=== PATIENT | female | born 1945 | race Caucasian/White ===

== ENCOUNTER → 2024-11-18 | Outpatient (CLI) | payer MEDICARE, OTHER ==
[~2024-11-18] MED LIST: iohexol 350MG/ML 100ml bottle IV ONE
== END | disposition home or self-care (01) ==
LOC: RAD 09:27
PROVIDERS: ATTEND Internal Medicine Interventional Cardiology
DX: I65.23 Occlusion and stenosis of bilateral carotid arteries (principal)
CPT/HCPCS: 70498; Q9967

== ENCOUNTER 2024-12-30 13:44 | Day surgery (SDC) | payer MEDICARE, OTHER ==
[2024-12-27 09:10] LABS: BASOPHILS % (AUTO) 0.6 % (0-1); EOSINOPHILS # (AUTO) 0.3 X10'3 (0-0.9); EOSINOPHILS % (AUTO) 4.2 % (0-6); HEMATOCRIT 37.7 % (35.0-45.0); HEMOGLOBIN 12.9 g/dl (12.0-16.0); LYMPHOCYTES # (AUTO) 2.5 X10'3 (1.1-4.8); LYMPHOCYTES % (AUTO) 33.4 % (21-51); MEAN CORPUSCULAR HEMOGLOBIN 30.3 PG (27.0-31.0); MEAN CORPUSCULAR HGB CONC 34.2 g/dL (33.0-36.5); MEAN CORPUSCULAR VOLUME 88.6 FL (78-98); MEAN PLATELET VOLUME 9.4 FL (7.4-10.4); MONOCYTES # (AUTO) 0.5 X10'3 (0-0.9); MONOCYTES % (AUTO) 6.8 % (2-12); NEUTROPHILS # (AUTO) 4.1 X10'3 (1.8-7.7); PLATELET COUNT 246 X10'3 (140-440); RED BLOOD COUNT 4.26 X10'6 (4.20-5.60); RED CELL DISTRIBUTION WIDTH 14.6 % (11.5-14.5); WHITE BLOOD COUNT 7.4 X10'3 (4.5-11.0)
[2024-12-27 09:19] LABS: APTT 29 SECONDS (22-32); PROTHROMBIN TIME 10.4 SECONDS (9.0-12.0)
[2024-12-27 09:27] LABS: ALBUMIN 3.6 G/DL (3.4-5.0); ANION GAP 8 (8-16); BLOOD UREA NITROGEN 22 MG/DL (7-18); BUN/CREATININE RATIO 18.8 (10.0-20.0); CALCIUM 9.6 MG/DL (8.5-10.1); CHLORIDE 106 MMOL/L (99-107); CHOL/HDL RATIO 1.9 (0.00-4.99); CHOLESTEROL 150 MG/DL (0-200); CREATININE 1.17 MG/DL (0.40-0.90); GLUCOSE 104 MG/DL (70-104); HDL CHOLESTEROL 81 MG/DL (35-60); LDL CHOLESTEROL 52 MG/DL (50-100); POTASSIUM 3.4 MMOL/L (3.5-5.1); SODIUM 142 MMOL/L (135-145); TOTAL CARBON DIOXIDE 28.1 MMOL/L (24-32); TRIGLYCERIDES 113 MG/DL (20-135); eGFR 45 ML/MIN
[2024-12-30] VITALS (10 sets, daily range): BP systolic 103–169; BP diastolic 48–71; PULSE 61–95; RESP 10–19; TEMP 98.1; O2SAT 93–98
[~2024-12-30] VITALS: Ht 160 cm; Wt 72.8 kg
--- NOTE | 2024-12-30 14:13 | ELECTROCARDIOGRAPH REPORT ---
[facility] Test Date: 2024-12-30 Test Time: 14:10:52 Pat Name: NED FINK Department: [facility] Patient ID: [facility]-[id number] Room: Gender: F Benefits Manager: : 1945 Requested By: CONNIE DAWSON Order Number: [id number] Reading MD: Dr. ISMAEL Hicks Measurements Intervals [place] Rate: 75 P: 11 NV: 189 QRS: -19 QRSD: 100 T: 109 QT: 414 QTc: 463 Interpretive Statements Sinus rhythm Atrial premature complexes in couplets LVH with secondary repolarization abnormality Baseline wander in lead(s) II,aVR,aVF Electronically Signed On 12-30-2024 19:14:[address] ISMAEL Hicks Please click the below link to view image of tracing.
[2024-12-30] MEDS ORDERED: RALO60TA13 PO (14:46)
[2024-12-30] MEDS ORDERED: BENA40TA46 PO (14:46)
[2024-12-30] MEDS ORDERED: CLOP-32 PO (14:46)
[2024-12-30] MEDS ORDERED: EZET10TA7 PO (14:46)
[2024-12-30] MEDS ORDERED: HYDR25TA5 PO (14:46)
[2024-12-30] MEDS ORDERED: ASPI-611 PO (14:46)
[2024-12-30] MEDS ORDERED: ATOR-2 PO (14:46)
[2024-12-30] MEDS ORDERED: CALC-159 PO (14:46)
[2024-12-30] MEDS ORDERED: GLUC1CAP33 PO (14:46)
[2024-12-30] MEDS: normal saline 1,000 ML IV SCH (15:14)
[2024-12-30] MEDS: diphenhydrAMINE 25mg capsule PO PRN (15:15)
[2024-12-30] MEDS ORDERED: DOPamine 400mg/D5W 250ml 0 ML IV ONE (16:06)
[2024-12-30] MEDS ORDERED: phenylephrine 10mg/ml inj. ONE (16:06)
[2024-12-30] MEDS ORDERED: epiNEPHrine 0.1mg/ml 10ml syringe ONE (16:07)
[2024-12-30] MEDS ORDERED: atropine 0.1mg/ml 10ml syringe ONE (16:07)
[2024-12-30] MEDS ORDERED: LIDOcaine 1% 30ml preserv. free vial ONE (16:07)
[2024-12-30] MEDS ORDERED: heparin 1,000unit/ml 10ml vial 0 ML ONE (16:07)
[2024-12-30] MEDS ORDERED: iohexol 350MG/ML 100ml bottle IV ONE (16:08)
[2024-12-30] MEDS ORDERED: iohexol 350 MG/ML 50ML vial IV ONE (16:46)
--- NOTE | 2024-12-30 18:05 | OPERATIVE REPORT ---
Operative Report Providers to CC: TRACEE HARDY MD Operative Report CAROTID ANGIOGRAM DICTATING PHYSICIAN: Jeyson Dawson MD PROCEDURES: 1. Aortic arch angiography. 2. Selective right common and non-selective right internal and external carotid artery angiography. 3. Right femoral angiography and use of a PerClose closure device achieve hemostasis. INDICATIONS 1. Severe/Critical carotid artery stenosis per carotid doppler PHYSICIAN: Jeyson Dawson M.D. 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 After adequate anesthesia was obtained using 1% lidocaine to the right groin, a 7-Bel[place] sheath was inserted into right femoral artery using a modified Seldinger technique. Thereafter, using a pigtail catheter, the catheter was advanced into the ascending aorta and aortic arch angiography was performed. Next, using a Renee 2 catheter, the catheter was advanced into the right innominate artery and a selective angiography of the right common carotid was peformed. A pull back was also performed to assess for any pressure difference across the calcific innominate lesion. There was essentially no pressure gradient across the calcified portion of the innominate, with only a noted 3-5 mmHg difference. At the completion of the procedure, all wire and catheters were removed and a right femoral angiogram was performed to assess suitability for a closure device. A PerClose closure device was used to achieve hemostasis of the right femoral arteriotomy site. The patient tolerated the procedure well FINDINGS: 1. The patient has a noted Type 2 aortic arch. 2. 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 The gradient across the innominate was noted to be only 3-5 mmHg upn pullback across the lesion. 3. Right common carotid is tortuous and the right internal carotid artery has noted mild to moderate (40%) disease. 4. The left common carotid artery is patent per non-selective angiography. COMPLICATIONS: None ESTIMATED BLOOD LOSS: < 5 cc IMPRESSION: 1. Mild to moderate (40%) stenosis of the right common carotid artery. 2. 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 RECOMMENDATIONS: 1. Lifestyle and risk factor modification. 2. Follow-up in the office as scheduled JEYSON DAWSON MD December 30, 2024 18:05
[2024-12-30] MEDS ORDERED: ondansetron/PF 4mg/2ml inj IV PRN (20:05)
[2024-12-30] MEDS ORDERED: proCHLORperazine 10 MG/2 ml inj IV PRN (20:10)
[2024-12-30] MEDS ORDERED: HYDROcodone/acetaminophen 10/325mg tab PO PRN (20:10)
[2024-12-30] MEDS ORDERED: HYDROcodone/acetaminophen 5mg/325mg tablet PO PRN (20:10)
== END 2024-12-30 19:55 | disposition home or self-care (01) ==
LOC: SSTAY O 13:44
PROVIDERS: ATTEND Internal Medicine Interventional Cardiology
DX: I65.21 Occlusion and stenosis of right carotid artery (principal); Q25.49 Other congenital malformations of aorta; I49.1 Atrial premature depolarization; E78.5 Hyperlipidemia, unspecified; K21.9 Gastro-esophageal reflux disease without esophagitis; M10.9 Gout, unspecified; Z79.899 Other long term (current) drug therapy; Z79.01 Long term (current) use of anticoagulants; Z98.890 Other specified postprocedural states
CPT/HCPCS: 36222; 36415; 80048; 80061; 83695; 85025; 85610; 85730; 93005; A6258; C1894; J1644; J2003; J2371; J7030; Q0163; Q9967; Z7610; 75625; 99152; 99153; J0171; J0461; J1265